=== PATIENT | male | born 1955 | race Caucasian/White ===

== ENCOUNTER → 2017-01-29 | Outpatient (CLI) | payer MEDICARE ==
[~2017-01-29] MED LIST: ASPIR 8181 MG PO; ATORVASTATIN CA40 MG PO; BUSPAR 5MG TABLE5 MG PO; CYMBALTA60 MG PO; HYDRALAZINE HCL25 MG PO; HYDROCODONE PO; LASIX40 MG PO; LEVAQUIN500 MG PO; LISINOPRIL-HCT1 EAC1 PO; METOPROLOL SUC100 MG PO; NEURONTIN 400400 MG PO; NORVASC 5 MG TAB5 MG PO; OMEPRAZOLE20 M1 PO; POTASSIUM CHLO10 MEQ PO; TRIAMCINOLONE A15 G1 TP
[2017-01-29 10:48] LABS: HEMOGLOBIN 16.4 gm/dl (14.0-17.5); RED BLOOD COUNT 5.22 M/UL (4.20-5.50); WHITE BLOOD COUNT 10.4 K/UL (4.5-11.0)
[2017-01-29 11:17] LABS: BUN/CREATININE RATIO 24 (0-10)
== END ==
LOC: LAB 09:56
PROVIDERS: Internal Medicine Cardiovascular Disease; Nurse Practitioner
DX: Z12.5 Encounter for screening for malignant neoplasm of prostate (principal); R63.5 Abnormal weight gain; R53.83 Other fatigue; E55.9 Vitamin D deficiency, unspecified; I10 Essential (primary) hypertension; E53.8 Deficiency of other specified B group vitamins
CPT/HCPCS: 36415; 80053; 80061; 82607; 84439; 84443; 85027; G0103

== ENCOUNTER → 2020-12-08 | Outpatient (CLI) | payer MEDICARE, OTHER ==
[2020-12-08 12:17] LABS: HEMOGLOBIN 15.4 gm/dl (14.0-17.5); RED BLOOD COUNT 5.67 M/UL (4.20-5.50); WHITE BLOOD COUNT 9.9 K/UL (4.5-11.0)
[2020-12-08 12:45] LABS: BUN/CREATININE RATIO 16 (0-10)
== END ==
LOC: NM 11-23 08:45 → HEART 5 11-23 08:45 → NM 09:35
PROVIDERS: Internal Medicine Cardiovascular Disease
DX: I25.10 Atherosclerotic heart disease of native coronary artery without angina pectoris (principal); R07.9 Chest pain, unspecified; R06.02 Shortness of breath; I11.9 Hypertensive heart disease without heart failure; I35.0 Nonrheumatic aortic (valve) stenosis
CPT/HCPCS: ECHO; 36415; 78452; 80053; 80061; 84443; 85025; 93017; 93306; A9502; J2785